=== PATIENT | female | born 1960 | race Caucasian/White ===

== ENCOUNTER 2024-12-09 13:51 | Emergency (ER) | payer OTHER ==
[~2024-12-09] VITALS: Ht 177.8 cm; Wt 66.8 kg
[2024-12-09 14:24] LABS: MEAN PLATELET VOLUME 8.0 FL (7.4-10.4); RED CELL DISTRIBUTION WIDTH 13.2 % (11.5-14.5)
[2024-12-09 14:40] LABS: CREATININE 0.65 MG/DL (0.40-0.90); PRO BRAIN NATRIURETIC PEPTIDE 311 PG/ML (0-125); TOTAL CARBON DIOXIDE 30.2 MMOL/L (24-32); eCRCL 93 ML/MIN; eGFR > 90 ML/MIN
--- NOTE | 2024-12-09 15:47 | RADIOLOGY REPORT ---
CHEST RADIOGRAPH REASON FOR EXAM: Chest pain COMPARISON: None TECHNIQUE: One view of the chest is provided FINDINGS: The cardiomediastinal silhouette is within normal limits for size. There is aortic atherosc lerosis. There is no focal airspace disease. There is no significant pleural effusion. There is no pneumothorax. A surgical clip projects over the right axilla. No acute osseous abnormality is identi fied. IMPRESSION: No acute cardiopulmonary process.
--- NOTE | 2024-12-09 16:03 | ELECTROCARDIOGRAPH REPORT ---
[facility] Test Date: 2024-12-09 Test Time: 13:57:15 Pat Name: JAS FANG Department: EMERGENCY ROOM Room: Gender: F [employer]: ISIAH : 1960 Requested By: BETH CORTEZ Order Number: [id number] Reading MD: Measurements Intervals [place] Rate: 100 P: 65 MN: 195 QRS: 44 QRSD: 85 T: 44 QT: 330 QTc: 426 Interpretive Statements Sinus tachycardia Baseline wander in lead(s) V1,V2,V3 Please click the below link to view image of tracing.
--- NOTE | 2024-12-09 17:40 | Physician Documentation ---
History of Present Illness ~ Chief Complaint: Chest Wall Pain Stated Complaint: CHEST PAIN Time Seen by MD: 16:57 Source: patient, family Mode of Arrival: POV, Ambulatory HPI Patient is seen today with her with complaints of some chest pain anteriorly that feels like a tightness. Patient denies any previous cardiac history personally. Patient states she was throwing her granddaughter in the pool repetitively for about an hour the other day and feels this may possibly be the source of her pain but she wanted to rule out any cardiac involvement. Patient denies any diaphoresis or shortness of breath or abdominal pain or nausea, vomiting, diarrhea. She has no other concern or complaint at this time. Medication Reconciliation Allergies: Coded Allergies: codeine (Verified Allergy, Unknown, 12/09/24) morphine (Verified Allergy, Unknown, 12/09/24) Review of Systems Constitutional: Denies: chills, fever, weakness Eyes: Denies: pain, blurred vision ENT: Denies: ear pain, nose pain, throat pain, mouth pain Respiratory: Denies: cough, shortness of breath Cardiovascular: Denies: chest pain, palpitations Gastrointestinal: Denies: abdominal pain, nausea, vomiting Genitourinary: Denies: burning, dysuria Female Genitalia: Denies: vaginal discharge, pelvic pain Neurological: Denies: headache, dizziness Musculoskeletal: Denies: pain, swelling Integumentary: Denies: rash, lesions Allergic/Immunologic: Denies: hives, itching Hematologic/Lymphatic: Denies: no symptoms reported Psychiatric: Denies: depression, anxiety Physical Exam Vital Signs: Temperature: 98.2, Source: Oral, Heart Rate: 97, Respiratory Rate: 14, BP: 131/92, Pulse Oximetry: 98, Weight: 66.820 Physical Exam General: Awake and Alert, no acute distress. HEENT: Conjunctiva pink, Sclera clear, Mucus Membranes moist. Neck: Supple without masses and tenderness. Resp: Unlabored. Lungs clear to auscultation bilaterally. Heart: Regular Rate and rhythm, normal S1 and S2 without murmur, rub or gallop. Abdomen: Soft and non tender no organomegaly Extremities: No cyanosis,clubbing or edema. Skin: Warm and Dry. Progress Results/Orders Results/Orders Vital Signs 12/09/24 12/09/24 14:02 16:40 Temp 98.2 Pulse 97 Resp 18 14 B/P (MAP) 131/92 Pulse Ox 98 Laboratory Tests Test 12/09/24 13:58 12/09/24 16:45 White Blood Count 6.5 Red Blood Count 4.25 Hemoglobin 14.2 Hematocrit 42.2 Mean Corpuscular Volume 99.2 H Mean Corpuscular Hemoglobin 33.3 H Mean Corpuscular Hemoglobin Concent 33.6 Red Cell Distribution Width 13.2 Platelet Count 253 Mean Platelet Volume 8.0 Neutrophils (%) (Auto) 58.5 Lymphocytes (%) (Auto) 26.9 Monocytes (%) (Auto) 11.2 Eosinophils (%) (Auto) 2.8 Basophils (%) (Auto) 0.6 Neutrophils # (Auto) 3.8 Lymphocytes # (Auto) 1.7 Monocytes # (Auto) 0.7 Eosinophils # (Auto) 0.2 Basophils # (Auto) 0.0 CBC Comment Sodium Level 139 Potassium Level 4.0 Chloride Level 101 Carbon Dioxide Level 30.2 Anion Gap 8 Blood Urea Nitrogen 9 Creatinine 0.65 Estimated GFR/1.73 m2 > 90 BUN/Creatinine Ratio 13.8 Glucose Level 111 H Calcium Level 9.1 Troponin I High Sensitivity 5 4 Pro-B-Type Natriuretic Peptide 311 H Albumin 4.0 Chemistry Comments Troponin I High Sens Percent Delta 20 Troponin I Hi Sens Absolute Change -1 EKG/XRAY/CT/US/VASC/MRI EKG : Additional Comment Patient's EKG was interpreted by myself today and shows slightly tachycardic rate at 100 beats per minute, normal sinus rhythm, no ST segment elevation or ischemic changes and no axis deviation. Chest X-Ray : Additional Comments Chest x-ray interpreted by myself today shows no large infiltrate, no large effusion, normal mediastinum. DIAGNOSTIC RADIOLOGY Patient: JAS FANG Medical Record: [id number] : 1960, Age: 64 Sex: Female Location: ER Patient Status: REG ER Service Date/Time: 12/09/24 1409 Ordering Physician: BETH CORTEZ MD Exam: CHEST,SINGLE VIEW CHEST RADIOGRAPH REASON FOR EXAM: Chest pain COMPARISON: None TECHNIQUE: One view of the chest is provided FINDINGS: The cardiomediastinal silhouette is within normal limits for size. There is aortic atherosclerosis. There is no focal airspace disease. There is no significant pleural effusion. There is no pneumothorax. A surgical clip projects over the right axilla. No acute osseous abnormality is identified. IMPRESSION: No acute cardiopulmonary process. Electronically Signed by:MARIO BE MD Date & Time: 12/09/241544 Dictated by: MARIO BE MD Dictation date and time: 12/09/241544 Primary Care Provider: NO PRIMARY CARE PROVIDER cc: BETH CORTEZ MD ~ Medical Decision Making Findings Patient is seen today with her with complaints of some chest pain anteriorly that feels like a tightness. Patient denies any previous cardiac history personally. Patient states she was throwing her granddaughter in the pool repetitively for about an hour the other day and feels this may possibly be the source of her pain but she wanted to rule out any cardiac involvement. Patient denies any diaphoresis or shortness of breath or abdominal pain or nausea, vomiting, diarrhea. She has no other concern or complaint at this time. Patient's heart rate did come down considerably down into the upper 70s just prior to discharge. Patient lab work and troponins were negative and unremarkable with EKG and chest x-ray also largely being unremarkable. Patient declined admission today and they state they are headed on their way to the [facility]. Patient will return to ED with any worsening, concerning or changing symptoms. Departure Disposition: HOME / SELF CARE / HOMELESS Impression: Primary Impression: Chest wall pain Condition: Improved Discharge Instructions: Chest Wall Pain, Costochondritis Additional Instructions: Patient's heart rate did come down considerably down into the upper 70s just prior to discharge. Patient lab work and troponins were negative and unremarkable with EKG and chest x-ray also largely being unremarkable. Patient declined admission today and they state they are headed on their way to the [facility]. Patient will return to ED with any worsening, concerning or changing symptoms. Referrals: NO PRIMARY CARE PROVIDER (PCP) Signature Scribe Signature: No scribe Attestation: No scribe CONRADO MERINO PAC Dec 09, 2024 17:40
[2024-12-09 17:58] VITALS: BP 130/90; PULSE 92; RESP 16; TEMP 98.5; O2SAT 98
== END 2024-12-09 18:00 | disposition home or self-care (01) ==
LOC: ER 13:53
DX: R07.89 Other chest pain (principal); Z88.5 Allergy status to narcotic agent
CPT/HCPCS: 36415; 71045; 80048; 83880; 84484; 85025; 93005; 99285